=== PATIENT | female | born 2000 | race Hispanic/Latino ===

== ENCOUNTER 2021-07-04 02:36 | Emergency (ER) | payer BC ==
[~2021-07-04] VITALS: Ht 157.5 cm; Wt 61.0 kg
[2021-07-04] MEDS ORDERED: PROMETHAZINE HC25 M1 PO (03:42)
[2021-07-04] MEDS ORDERED: PROMETHAZINE HC25 MG PR (03:42)
--- OUTSIDE RECORDS SUMMARY | 2021-07-04 04:22 | XMS ---
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 E.D. VISIT COUNT (12 MO.) 1 [facility] 1 [facility] 1 RICKEY Gupta TOTAL 3 NOTE: Visits indicate total known visits. ED/UCC VISIT TRACKING (12 MO.) 07/04/2021 02:37 [facility] [place] TYPE: Emergency COMPLAINT: - VOMITING, ABD PAIN, NAUSEA 07/02/2021 08:27 [facility] ED Sweta CABRALES TYPE: Emergency DIAGNOSES: - Nausea with vomiting, unspecified - Abdominal Pain; Emesis - Hypokalemia - Personal history of other diseases of the digestive system - Emesis - Abdominal Pain 06/04/2021 08:49 [facility] TYPE: Emergency DIAGNOSES: - covid testing - Nausea with vomiting, unspecified INPATIENT VISIT TRACKING (12 MO.) No inpatient visits to display in this time frame [id number]
== END 2021-07-04 04:02 | disposition home or self-care (01) ==
LOC: ED 02:36
DX: R11.2 Nausea with vomiting, unspecified (principal)
CPT/HCPCS: 36415; 80048; 85025; 96374; 96376; 99284-25; J1790; J7030

== ENCOUNTER 2021-08-13 12:24 | Emergency (ER) | payer BC ==
[~2021-08-13] VITALS: Ht 157.5 cm; Wt 57.6 kg
[~2021-08-13 12:24] MED LIST: PROMETHAZINE HC25 M1 PO; PROMETHAZINE HC25 MG PR
--- OUTSIDE RECORDS SUMMARY | 2021-08-13 12:26 | XMS ---
PreManage Notification: SCOOBY JAEGER Security Book Retailer Events No recent Security Events currently on file CRITERIA MET - [facility] - 3 Facilities in 90 Days - [facility] - 2 Visits in 30 Days - 6 ED Visits in 6 Months CARE PROVIDERS MARKUS LAGUERRE Shoe Stitcher Odd/Site Reliability Engineer Graham RAMACHANDRAN PHONE: [phone] BAM SIMMONS Noise Abatement Engineer: Clinical Graham ARCHER PHONE: [phone] NASREEN DUNBAR Nurse Practitioner: Women's Health Current PHONE: [phone] [facility] has no Care Guidelines for this patient. E.D. VISIT COUNT (12 MO.) 1 [facility] 2 [facility] 1 [facility] 1 [facility] ED 2 RICKEY Gupta TOTAL 7 NOTE: Visits indicate total known visits. ED/UCC VISIT TRACKING (12 MO.) 08/13/2021 12:25 [facility] [place] TYPE: Emergency COMPLAINT: - VOMITING 08/08/2021 22:28 [facility] [place] TYPE: Emergency DIAGNOSES: - VOMITING ABD PAIN - Nausea with vomiting, unspecified [facility] DIAGNOSES: - Nausea with vomiting, unspecified - Nausea Vomiting 07/05/2021 12:10 [facility] TYPE: Emergency DIAGNOSES: - Emesis - Abdominal Pain - Unspecified ovarian cyst, right side - Nausea with vomiting, unspecified - Nausea - Benign neoplasm of right ovary 07/04/2021 02:37 [facility] [place] TYPE: Emergency COMPLAINT: - VOMITING, ABD PAIN, NAUSEA DIAGNOSES: - Nausea with vomiting, unspecified 07/02/2021 08:27 [facility] ED Sweta SAMRA TYPE: Emergency DIAGNOSES: - Nausea with vomiting, unspecified - Abdominal Pain; Emesis - Hypokalemia - Personal history of other diseases of the digestive system - Emesis - Abdominal Pain 06/04/2021 08:49 [facility] TYPE: Emergency DIAGNOSES: - covid testing - Nausea with vomiting, unspecified INPATIENT VISIT TRACKING (12 MO.) No inpatient visits to display in this time frame [email or web address]
[2021-08-13] MEDS ORDERED: DICYCLOMINE HCL20 MG PO (12:45)
[2021-08-13] MEDS ORDERED: ONDANSETRON ODT4 MG PO (12:45)
[2021-08-13] MEDS ORDERED: FAMOTIDINE20 MG PO (12:46)
--- NOTE | 2021-08-13 15:23 | EKG ---
[facility] [address] [place] [address] Signed Sinus tachycardia T wave abnormality, consider inferolateral ischemia Prolonged QT Abnormal ECG No previous ECGs available Confirmed by KAIA MIRZA MD ([id number]) on 08/13/2021 3:22:52 PM Electronically Signed By: KAIA MIRZA MD 08/13/21 1523 PATIENT NAME: SCOOBY JAEGER Electrocardiogram DATE OF : [birth year] PHYSICIAN: KAIA MIRZA MD REPORT #: [id number] REPORT IS CONFIDENTIAL AND NOT TO BE RELEASED WITHOUT AUTHORIZATION
[2021-08-13] MEDS ORDERED: K-TAB ER20 MEQ PO (18:13)
== END 2021-08-13 18:30 | disposition home or self-care (01) ==
LOC: ED 12:24
DX: R11.2 Nausea with vomiting, unspecified (principal); F12.10 Cannabis abuse, uncomplicated; E86.0 Dehydration; E87.6 Hypokalemia; Z79.899 Other long term (current) drug therapy
CPT/HCPCS: 36415; 80048; 80053; 81001; 83690; 83735; 84703; 85025; 93005; 93010; 96365; 96366; 96375; 96376; 99284-25; A9270; J2405; J3480; J7030